=== PATIENT | female | born 1970 | race Caucasian/White ===

== ENCOUNTER 2016-10-22 11:05 | Observation (INO) ==
[2016-10-22 12:02] LABS: Basophils # 0.1 K/mcL (0.0-0.2); Basophils % 0.7 %; Eosinophils # 0.1 K/mcL (0.0-0.6); Eosinophils % 1.1 %; Hematocrit 43.3 % (35.3-44.9); Hemoglobin 14.6 g/dL (11.5-15.4); Immature Granulocytes % 0.6 % (0-4); Lymphocytes # 1.8 K/mcL (0.6-4.6); Mean Corpuscular HGB Conc 33.7 g/dL (31.6-35.5); Mean Corpuscular Hemoglobin 31.7 pg (28.0-33.3); Mean Corpuscular Volume 94.1 fL (83.0-100.0); Mean Platelet Volume 11.1 fL (9.4-12.4); Monocytes # 0.4 K/mcL (0.0-1.3); Monocytes % 5.8 %; Neutrophils # 4.9 K/mcL (1.6-8.9); Platelet Count 221 K/mcL (140-400); Red Cell Distribution Width 12.3 % (11.5-14.5); Segmented Neutrophils % 66.8 %
[2016-10-22 12:12] LABS: BUN/Creatinine Ratio 8 (6-26); Blood Urea Nitrogen 7 mg/dL (7-20); Calcium 9.6 mg/dL (8.6-10.8); Carbon Dioxide 25 mEq/L (19-29); Chloride 100 mEq/L (98-109); Glucose 415 mg/dL (70-99); Osmolality,Calculated 298 (280-300); Potassium 4.1 mEq/L (3.5-4.5); Sodium 136 mEq/L (136-145); eGFR For African Americans > 60 (> 60); eGFR For Non-African Americans > 60 (> 60)
--- NOTE | 2016-10-22 12:25 | Emergency Department Note ---
Disposition Clinical Impression: Syncope Qualifiers: Syncope type: unspecified Qualified Code(s): R55 - Syncope and collapse Chest pain Qualifiers: Chest pain type: unspecified Qualified Code(s): R07.9 - Chest pain, unspecified Disposition: Admitted As Inpatient Condition: Fair Referrals: NONE,PCP [Non-Partnered Physician] - Forms: ED Satisfaction Letter Time of Disposition: 13:29 Syncope HPI - General Chief Complaint: ED Syncope Stated Complaint: Syncopal episode/ Chest pain Time Seen by Provider: 10/22/16 11:24 Source: patient, family Nursing Notes Reviewed: Yes Vital Signs Reviewed: Yes - History of Present Illness HPI Narrative: Patient is a 46-year-old female who presents to [facility] ED with a chief complaint of syncopal episode. Patient states she was sitting outside in her car waiting for her daughter's orthopedic appointment when she all of a sudden started feeling lightheaded, left arm pain and next thing she knew her daughter was waking her up. Patient states that she has had persistent worsening left arm achiness over the last 2 days that seems to start from her left upper chest. Denies any recent injury to the area. She has had 2 prior shoulder replacements and has had some troubles in the past with that left shoulder. However it has not bothered her to this extent. Past medical history significant for coronary artery disease in which catheterization showed 20-30% blockage about a year ago. Denies any shortness of breath, nausea, vomiting, fever or chills. No abdominal pain. No problems with urination or bowel movements. 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 Duration: minutes(s) Prodromal Symptoms: lightheaded, chest pain Witnessed: no Context: at rest Injuries Sustained Associated with Event: none Current Symptoms: chest pain, other (L arm pain) History: none Treatments prior to arrival: none Associated trauma secondary to event: No - Related Data Home Medications Medication Instructions Recorded Confirmed Cholecalciferol (Vitamin D3) 2,000 unit PO DAILY 10/22/16 10/22/16 [Vitamin D] Cyanocobalamin (B-12) [Vitamin B12] 1,000 mcg PO DAILY 10/22/16 10/22/16 Famotidine [Pepcid] 10 mg PO BID 10/22/16 10/22/16 Insulin Glargine,Hum.rec.anlog 33 unit SQ BID 10/22/16 10/22/16 [Basaglar Kwikpen U-100] Insulin LISPRO [Humalog Kwikpen 0 unit SQ TID MDD PER SLIDING SCALE 10/22/16 U-100] Metformin HCl [Glucophage] 1,000 mg PO BID 10/22/16 10/22/16 Metoprolol [Lopressor] 25 mg PO BID 10/22/16 10/22/16 Ranitidine HCl [Zantac] 150 mg PO BID 10/22/16 10/22/16 Rosuvastatin [Crestor] 20 mg PO HS 10/22/16 10/22/16 Sertraline [Zoloft] 50 mg PO DAILY 10/22/16 10/22/16 Trazodone HCl 100 mg PO HS 10/22/16 10/22/16 glipiZIDE [Glipizide] 10 mg PO BID 10/22/16 10/22/16 Allergies Allergy/AdvReac Type Severity Reaction Status Date / Time acetaminophen [From Percocet] AdvReac Itching Verified 07/16/16 10:07 Hydromorphone [From Dilaudid] AdvReac Difficulty Verified 07/16/16 10:07 Breathing Hyoscyamine [From Levbid] AdvReac Itching Verified 07/16/16 10:07 metronidazole [From Flagyl] AdvReac Itching Verified 07/16/16 10:07 Oxycodone [From Percocet] AdvReac Itching Verified 07/16/16 10:07 All systems ED: reviewed and negative except as stated. Past Medical History - Past Medical History Attestation: Yes The following information was validated with the patient. Source: patient Medical history: Reports: asthma, diabetes, hyperlipidemia, renal disease Psychiatric history: Reports: anxiety, depression SHIP PILOT history: Reports: bilateral tubal ligation - Social History Smoking Status: Former smoker Smokeless Tobacco Status: No Alcohol use: Reports: none Drug use: Reports: none Physical Exam - General Limitations: no limitations General appearance: alert, in no apparent distress - Head Head exam: atraumatic, normocephalic, normal inspection - Eye Eye exam: Present: normal appearance, PERRL, EOMI - ENT ENT exam: normal exam, normal oropharynx, mucous membranes moist - Neck Neck exam: Present: normal inspection, full ROM, trachea midline - Chest Chest inspection: Present: normal inspection, symmetric chest wall rise - Respiratory Respiratory exam: Present: normal lung sounds bilaterally - Cardiovascular Cardiovascular exam: Present: normal rhythm, tachycardia, normal heart sounds - Abdominal Exam Abdominal exam: Present: soft, Non-Tender. Absent: tenderness, distention, guarding, rebound, rigidity - Extremities Exam Extremities exam: Present: normal inspection, full ROM. Absent: tenderness, pedal edema - Back Exam Back exam: Present: normal inspection, full ROM. Absent: tenderness - Neurological Exam Neurological exam: Present: alert - Psychiatric Psychiatric exam: Present: normal affect, normal mood - Skin Skin exam: Present: warm, dry, intact, normal color Course Course Narrative: Patient seen and examined. Syncopal episode at rest which occurred along with left arm pain and left-sided chest pain. With her history of CAD, we will go ahead and do cardiac workup. We will also get a d-dimer since she has slightly tachycardic. Plan for admission for syncope and chest pain, rule out ACS. - Reevaluation(s) Reevaluation #1: Lab work shows elevated glucose of 400s. No anion gap. I do not believe this patient is in DKA. Labwork otherwise unremarkable. With patient's left arm and chest pain as well as nonexertional syncope, we will get her admitted for syncope/chest pain rule out ACS workup. I spoke with hospitalist Dr. Jallho who has accepted patient for admission. Time: 13:28 Vital Signs Temperature 98.9 F 10/22/16 11:06 Pulse Rate 102 10/22/16 11:06 Respiratory Rate 16 10/22/16 11:06 Blood Pressure 136/82 10/22/16 11:06 O2 Sat by Pulse Oximetry 97 10/22/16 11:06 Temperature 98.9 F 10/22/16 11:06 Pulse Rate 93 10/22/16 13:23 Respiratory Rate 20 10/22/16 13:23 Blood Pressure 115/74 10/22/16 13:23 O2 Sat by Pulse Oximetry 96 10/22/16 13:23 Oxygen Delivery Oxygen Delivery Room Air Syncope - Medical Records Medical records reviewed: Yes I reviewed the patient's medical records. - Lab Data Lab results reviewed: Yes I reviewed the patient's lab results. Result diagrams: 10/22/16 11:55 10/22/16 11:55 Lab Results 10/22/16 10/22/16 10/22/16 Range/Units 11:07 11:55 11:55 WBC 7.3 (4.3-11.1) K/mcL RBC 4.60 (3.82-4.97) M/mcL Hgb 14.6 (11.5-15.4) g/dL Hct 43.3 (35.3-44.9) % MCV 94.1 (83.0-100.0) fL MCH 31.7 (28.0-33.3) pg MCHC 33.7 (31.6-35.5) g/dL RDW 12.3 (11.5-14.5) % Plt Count 221 (140-400) K/mcL MPV 11.1 (9.4-12.4) fL Immature Gran % 0.6 (0-4) % Seg Neutrophils % 66.8 % Lymphocytes % 25.0 % Monocytes % 5.8 % Eosinophils % 1.1 % Basophils % 0.7 % Neutrophils # 4.9 (1.6-8.9) K/mcL Lymphocytes # 1.8 (0.6-4.6) K/mcL Monocytes # 0.4 (0.0-1.3) K/mcL Eosinophils # 0.1 (0.0-0.6) K/mcL Basophils # 0.1 (0.0-0.2) K/mcL D-Dimer (0-500) ng/mLFEU Sodium 136 (136-145) mEq/L Potassium 4.1 (3.5-4.5) mEq/L Chloride 100 (98-109) mEq/L Carbon Dioxide 25 (19-29) mEq/L BUN 7 (7-20) mg/dL Creatinine 0.83 (0.57-1.11) mg/dL Est GFR ( Amer) > 60 (> 60) Est GFR (Non-Af Amer) > 60 (> 60) BUN/Creatinine Ratio 8 (6-26) Glucose 415 H (70-99) mg/dL POC Glucose 430 H* (58-89) Calculated Osmolality 298 (280-300) Calcium 9.6 (8.6-10.8) mg/dL Troponin I (0-0.03) ng/mL 10/22/16 10/22/16 Range/Units 11:55 12:44 WBC (4.3-11.1) K/mcL RBC (3.82-4.97) M/mcL Hgb (11.5-15.4) g/dL Hct (35.3-44.9) % MCV (83.0-100.0) fL MCH (28.0-33.3) pg MCHC (31.6-35.5) g/dL RDW (11.5-14.5) % Plt Count (140-400) K/mcL MPV (9.4-12.4) fL Immature Gran % (0-4) % Seg Neutrophils % % Lymphocytes % % Monocytes % % Eosinophils % % Basophils % % Neutrophils # (1.6-8.9) K/mcL Lymphocytes # (0.6-4.6) K/mcL Monocytes # (0.0-1.3) K/mcL Eosinophils # (0.0-0.6) K/mcL Basophils # (0.0-0.2) K/mcL D-Dimer 297 (0-500) ng/mLFEU Sodium (136-145) mEq/L Potassium (3.5-4.5) mEq/L Chloride (98-109) mEq/L Carbon Dioxide (19-29) mEq/L BUN (7-20) mg/dL Creatinine (0.57-1.11) mg/dL Est GFR ( Amer) (> 60) Est GFR (Non-Af Amer) (> 60) BUN/Creatinine Ratio (6-26) Glucose (70-99) mg/dL POC Glucose (58-89) Calculated Osmolality (280-300) Calcium (8.6-10.8) mg/dL Troponin I 0.00 (0-0.03) ng/mL - Radiology Data Radiology results reviewed: Yes I reviewed the patient's radiology results. Chest X-Ray 10/22/16 11:45 IMPRESSION: No acute cardiopulmonary process. D/ / 10/22/2016 12:26:15 Rajesh Rader MD / [facility] Interpreting Provider: Rajesh Rader MD - EKG Data EKG attestation: Yes I reviewed and interpreted this EKG. EKG results narrative: EKG done at 1116 shows normal sinus rhythm with a rate of 96 bpm. Normal axis. Q wave present in lead 3 along with inverted T wave. No acute ST elevation. Mild ST depression in V5 and V6.
--- NOTE | 2016-10-22 12:28 | Emergency Department Note ---
START Narrative - START START: I examined this patient and my medical decision-making was reviewed with the STRUCTURAL WORKER/PA/Advanced Practice Nurse/Resident Physician. I agree with the documented findings, disposition and treatment plan as described except to the extent set forth below. ED attending note: Patient seen with emergency medicine resident Dr ACEVEDO. We independently evaluated the patient. We independently had [id number] contact with the patient. Please see a copy of his note for details of the history and physical, evaluation, management and disposition of this emergency Department patient. Briefly: 46-year-old female syncopal episode while sitting in car with a cool breeze patient felt a little nauseated and lightheaded and woke up with family member present. This happened once before last summer when she was out gardening in the hot sun. Patient also has a history of CAD verified by a recent cardiac catheter within about a year or so showing 20-30% blockage of the LAD. Patient's initial troponin was negative. EKG showed no acute ischemic changes. Patient will be admitted for syncope and chest pain ACS. We provided 35 minutes of critical care service for this patient. Pt is symptom- free at this time.
[2016-10-22] MEDS ORDERED: Naloxone 0.4 MG/ML INJ IVP PRN (15:07)
[2016-10-22] MEDS ORDERED: Ondansetron 4 MG/2 ML VIAL IVP PRN (15:07)
[2016-10-22] MEDS ORDERED: *HR* Dextrose 50 % in Water (Syg) 50 ML SYRINGE IVP PRN (15:20)
[2016-10-22] MEDS ORDERED: D5% in Water 1,000 ML IVC PRN ×2 (15:20→15:24)
[2016-10-22] MEDS ORDERED: Dextrose Gel 15 GM PO PRN ×2 (15:20)
--- NOTE | 2016-10-22 15:40 | Internal Med History&Physical ---
<Nay Chopra - Last Filed: 10/22/16 15:53> Date of Encounter: 10/22/16 Time of Encounter: 15:00 Assessment and Plan (1) Chest pain Current visit: Yes Status: Acute 1 patient had a syncopal episode she experienced left-sided chest pain as well as left arm tingling. She does have a history of coronary artery disease in 2030% progress to LAD. We will continue to trend troponins 2 cardiac echo 3. Nothing by mouth after midnight-cardiac stress in a.m. 4 we will continue with statin we will check lipid profile continue beta be LAD aspirin 5 consult cardiology as needed Qualifiers: Chest pain type: unspecified Qualified Code(s): R07.9 - Chest pain, unspecified (2) Syncope Current visit: Yes Status: Acute 1 patient did have an episode of syncope. We will continue to trend her troponin 2 obtain cardiac echo 3 continuous cardiac monitoring 4 carotid Dopplers 5 orthostatic vital signs 6. Fall Precautions Qualifiers: Syncope type: unspecified Qualified Code(s): R55 - Syncope and collapse (3) Diabetes Current visit: No Status: Chronic 1 patient's blood glucose was 415-anion gap 11-ramos that she has not been taking her insulin states she is to take it anymore. We will check blood sugars before meals at bedtime sliding scale insulin will add basal insulin. We will check A1c 2 diabetic diet Qualifiers: Diabetes mellitus type: type 2 Diabetes mellitus complication status: without complication Diabetes mellitus terminal carman insulin use: with terminal carman use Qualified Code(s): E11.9 - Type 2 diabetes mellitus without complications ; Z79.4 - terminal carman (current) use of insulin (4) DVT prophylaxis Current visit: Yes Status: Acute 1 [facility] Internal Medicine - H&P: HPI Chief complaint: syncope,cp Admitted From: Emergency Dept Plans for Post Hospital Care: Home History of present illness: Ms. See is a 46 year old female past medical history of heart disease asthma diabetes hyperlipidemia hypertension renal disease. Patient was sitting in her car today in the hospital parking lot waiting for her daughter, it was warm however she had window rolled down and was experiencing a cold breeze. Patient felt a little nauseated and lightheaded also chest pressure and left-sided chest and left arm numbness tingling. She did pass out for unknown amount time and was found by her daughter. Prior to this episode she was in normal state of health. She does have a history of CAD she had a cardiac catheterization proxy 1 year ago in [place] which did reveal 2030% blockage of the LAD. She does admit to a previous episode last summer when she was out gardening in the hot sun and experienced a syncopal episode. She was brought to the ER for evaluation. Lab work completed in the ER was unremarkable except for she did have elevated glucose at 415, tearful she has a DKA and Anion gap is 11. Troponin is 0. Vital signs were stable . EKG normal sinus with no acute ST elevation some mild ST depression. She has been admitted for further workup evaluation. Presently patient is not in pain respiratory distress she complains of some tingling in her left arm. Lung sounds are clear heart sounds are regular S1-S2 no rubs clicks, murmurs. Abdomen soft nontender. She is sinus rhythm on monitor. She has hemolytic stable at this time. I reviewed this case with Dr. Jalloh who agrees with plan. r Past Med Surg Social Fam HX - Past Medical History Medical history: asthma, diabetes, hyperlipidemia, renal disease Psychiatric history: anxiety, depression - Social History Smoking Status: Former smoker Smokeless Tobacco Status: No Alcohol use: none Drug use: none - Additional Family History Additional family history: Reviewed noncontributory Internal Medicine - H&P: Meds Cholecalciferol (Vitamin D3) [Vitamin D] 2,000 unit PO DAILY 10/22/16 [History] Cyanocobalamin (B-12) [Vitamin B12] 1,000 mcg PO DAILY 10/22/16 [History] Famotidine [Pepcid] 10 mg PO BID 10/22/16 [History] Insulin Glargine,Hum.rec.anlog [Basaglar Kwikpen U-100] 33 unit SQ BID 10/22/16 [History] Insulin LISPRO [Humalog Kwikpen U-100] 0 unit SQ TID MDD PER SLIDING SCALE 10/22 [History] Metformin HCl [Glucophage] 1,000 mg PO BID 10/22/16 [History] Metoprolol [Lopressor] 25 mg PO BID 10/22/16 [History] Ranitidine HCl [Zantac] 150 mg PO BID 10/22/16 [History] Rosuvastatin [Crestor] 20 mg PO HS 10/22/16 [History] Sertraline [Zoloft] 50 mg PO DAILY 10/22/16 [History] Trazodone HCl 100 mg PO HS 10/22/16 [History] glipiZIDE [Glipizide] 10 mg PO BID 10/22/16 [History] Allergies acetaminophen [From Percocet] Adverse Reaction (Verified 07/16/16 10:07) Itching Hydromorphone [From Dilaudid] Adverse Reaction (Verified 07/16/16 10:07) Difficulty Breathing Hyoscyamine [From Levbid] Adverse Reaction (Verified 07/16/16 10:07) Itching metronidazole [From Flagyl] Adverse Reaction (Verified 07/16/16 10:07) Itching Oxycodone [From Percocet] Adverse Reaction (Verified 07/16/16 10:07) Itching All Systems PM: A 10-system review of systems was performed and is negative for pertinent findings except as documented above in the HPI. - Constitutional Constitutional: no chills, no fever(s), no night sweats - EENT Eyes: no change in vision, no discharge, no pain, no photophobia Nose, mouth and throat: no dysphagia, no nasal discharge, no neck pain, no sore throat - Cardiovascular Cardiovascular ROS IM: chest pain, no diaphoresis, no dyspnea, no lightheadedness, no palpitations, no syncope - Respiratory Respiratory: no cough, no dyspnea, no wheezing, no excessive phlegm production - Gastrointestinal Gastrointestinal: no abdominal pain, no diarrhea, no hematemesis, no hematochezia, no melena, no nausea, no vomiting - Genitourinary Genitourinary: no change in urinary stream, no dysuria, no flank pain, no hematuria - Musculoskeletal Musculoskeletal ROS IM: no numbness, no tingling - Integumentary Integumentary IM: no rash, no unusual bruising - Neurological Neurological ROS: tingling, no confusion, no convulsions, no focal weakness, no numbness, no tremor(s) - Hematologic/Lymphatic Hematologic/Lymphatic: no easy bruising - Constitutional Vitals: Temp Pulse Resp BP Pulse Ox 98.9 F 84 20 107/66 93 10/22/16 11:06 10/22/16 14:00 10/22/16 14:56 10/22/16 14:56 10/22/16 14:00 General appearance: Present: A&O X 3, morbidly obese - Head Head exam: Present: atraumatic, normocephalic - Eye Eye exam: Present: PERRL, conjuntiva pink, sclera anicteric Pupils: Present: PERRL - Neck Neck exam general surgery: Present: supple, trachea midline. Absent: lymphadenopathy - Respiratory Respiratory exam: Present: CTAB. Absent: accessory muscle use, rales, rhonchi, wheezes - Cardiovascular Cardiovascular exam: Present: RRR, +S1, +S2. Absent: diastolic murmur, gallop, rubs, systolic murmur - GI/Abdominal GI/Abdominal exam: Present: normal bowel sounds, soft, no peritoneal signs. Absent: distended, tenderness - Extremities Exam Extremities exam: Present: warm, radial pulses palpable and symetrical. Absent : calf tenderness, cyanotic, pedal edema - Neurological Exam Neurological exam: Present: CN II-XII intact, oriented X3, no focal deficits. Absent: pronater drift, facial droop, speech deficit - Skin Skin exam: Present: dry, intact Internal Med - H&P Results - Labs CBC & Chem 7: 10/22/16 11:55 10/22/16 11:55 - EKG Data EKG shows normal: sinus rhythm - EKG Data Prior EKG available for review: no - Diagnostic Studies Other Images Additional comments: Chest X-Ray 10/22/16 11:45 IMPRESSION: No acute cardiopulmonary process. D/ / 10/22/2016 12:26:15 Rajesh Rader MD / [facility] Interpreting Provider: Rajesh Rader MD <David Jalloh - Last Filed: 10/22/16 19:00> Date of Encounter: 10/22/16 Internal Medicine - H&P: HPI History of present illness: Ms. See is a 46 year old female Past Med Surg Social Fam HX - Family History Mother Living Status: Age at : 66 Cause of : lung cancer with mets. All Systems PM: A 10-system review of systems was performed and is negative for pertinent findings except as documented above in the HPI. - Constitutional Vitals: Temp Pulse Resp BP Pulse Ox 98.0 F 88 18 112/68 94 10/22/16 16:05 10/22/16 16:05 10/22/16 16:05 10/22/16 16:05 10/22/16 16:05 Internal Med - H&P Results - Labs CBC & Chem 7: 10/22/16 11:55 10/22/16 11:55 Labs: Cardiac Enzymes 10/22/16 Range/Units 17:54 Troponin I 0.00 (0-0.03) ng/mL - Attending Attestation I have personally performed a face to face evaluation on this patient and I discussed the assessment and plan with the nurse practitioner. I have reviewed and agree with the documented care plan. History and Exam by me shows: Ms. See is a 46 year old female past medical history of heart disease asthma diabetes hyperlipidemia hypertension renal disease. Patient was sitting in her car today in the hospital parking lot waiting for her daughter, it was warm however she had window rolled down and was experiencing a cold breeze. Patient felt a little nauseated and lightheaded also chest pressure and left-sided chest and left arm numbness tingling. She did pass out for unknown amount time and was found by her daughter. Prior to this episode she was in normal state of health. She does have a history of CAD she had a cardiac catheterization proxy 1 year ago in [place] which did reveal 20-30% blockage of the LAD. Gen: A, A, O x3 Chest : diminished BS b/l basal regions, No crackles / rales Heart : S1 S2 +, RRR, No murmurs a/p 1. Acute syncope 2. Acute chest pain Check serial troponin since pt is high risk for ACS.. will order Jemima Scan stress test in AM 3. Hyperglycemia / uncontrolled DM2 Counseled the importance of compliance with her insulin resumed her home meds and placed her on ISS + Levemir
[2016-10-22] MEDS: Insulin LISPRO 300 UNITS/3 ML VIAL SQ SCH (16:39)
--- NOTE | 2016-10-22 18:29 | Electrocardiograph Report ---
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
[2016-10-22 19:14] LABS: Bilirubin,Urine Negative (Negative); Blood,Urine Negative (Negative); Clarity,Urine Clear (Clear); Color,Urine Yellow (Yellow); Glucose,Urine (UA) >=1000 mg/dL (Normal); Ketones,Urine Negative (Negative); Leukocyte Esterase,Urine Trace (Negative); Nitrite,Urine Negative (Negative); Protein,Urine Negative (Neg-Trace); Specific Gravity,Urine > 1.030 (1.010-1.025); Urobilinogen,Urine Normal (Normal)
[2016-10-22 19:21] LABS: Bacteria,Urine Few per hpf (None-Few); Hyaline Casts,Urine None Seen per lpf (None-Few); Squamous Epithelial Cell,Urine Many per lpf (None-Few); WBC,Urine 15-30 per hpf (0-3)
[2016-10-22] MEDS ORDERED: Insulin DETEMIR 100 UNIT/ML X5UNITS SQ SCH (21:00)
[2016-10-22] MEDS ORDERED: Insulin LISPRO 300 UNITS/3 ML VIAL SQ SCH (21:00)
[2016-10-22] MEDS ORDERED: traZODone 50 MG TABLET PO SCH (21:00)
[2016-10-22] MEDS ORDERED: NON-FORMULARY MEDICATION 1 EACH EACH (Ranitidine Hcl [Zantac] 150 MG) PO SCH (21:00)
[2016-10-22] MEDS: Famotidine 20 MG TABLET PO SCH (21:37)
[2016-10-23 00:42] LABS: Basophils % 0.5 %; Eosinophils # 0.1 K/mcL (0.0-0.6); Eosinophils % 1.6 %; Hematocrit 41.1 % (35.3-44.9); Hemoglobin 13.6 g/dL (11.5-15.4); Immature Granulocytes % 0.7 % (0-4); Lymphocytes # 3.8 K/mcL (0.6-4.6); Lymphocytes % 49.7 %; Mean Corpuscular HGB Conc 33.1 g/dL (31.6-35.5); Mean Corpuscular Hemoglobin 31.8 pg (28.0-33.3); Mean Platelet Volume 11.3 fL (9.4-12.4); Monocytes # 0.6 K/mcL (0.0-1.3); Monocytes % 7.3 %; Neutrophils # 3.1 K/mcL (1.6-8.9); Platelet Count 205 K/mcL (140-400); Red Blood Count 4.28 M/mcL (3.82-4.97); Red Cell Distribution Width 12.5 % (11.5-14.5); Segmented Neutrophils % 40.2 %
[2016-10-23 00:57] LABS: BUN/Creatinine Ratio 16 (6-26); Blood Urea Nitrogen 12 mg/dL (7-20); Calcium 9.1 mg/dL (8.6-10.8); Carbon Dioxide 30 mEq/L (19-29); Chloride 99 mEq/L (98-109); Chol/HDL Ratio 5.3 (0-4.9); Cholesterol 186 mg/dL (< 200); Glucose 230 mg/dL (70-99); HDL Cholesterol 35 mg/dL (40-59); LDL Cholesterol,Calculated 91 mg/dL (0-99); Magnesium 1.7 mg/dL (1.6-2.6); Osmolality,Calculated 287 (280-300); Potassium 3.6 mEq/L (3.5-4.5); Sodium 135 mEq/L (136-145); Triglycerides 298 mg/dL (< 150); eGFR For African Americans > 60 (> 60); eGFR For Non-African Americans > 60 (> 60)
[2016-10-23] MEDS ORDERED: Regadenoson 0.4 MG/5 ML SYRINGE IVP ONE ×3 (05:35→08:15)
[2016-10-23] MEDS ORDERED: *HR* Enoxaparin 40 MG/0.4 ML SYRINGE SQ SCH (07:00)
[2016-10-23] MEDS ORDERED: Cholecalciferol (D-3) 1,000 UNIT TABLET PO SCH (09:00)
[2016-10-23] MEDS ORDERED: Aspirin 81 MG TAB.CHEW PO SCH (09:00)
[2016-10-23] MEDS ORDERED: Cyanocobalamin (B-12) 1,000 MCG TABLET PO SCH (09:00)
[2016-10-23] MEDS: Insulin LISPRO 300 UNITS/3 ML VIAL SQ SCH ×3 (09:25→16:30)
[2016-10-23] MEDS: Famotidine 20 MG TABLET PO SCH (09:27)
[2016-10-23 14:53] VITALS: BP 96/63
--- NOTE | 2016-10-23 17:12 | Discharge Summary ---
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 Qualified Code(s): E11.9 - Type 2 diabetes mellitus without complications ; Z79.4 - penitentiary (current) use of insulin (4) Hyperlipidemia Priority: Secondary Status: Chronic Qualifiers: Hyperlipidemia type: unspecified Qualified Code(s): E78.5 - Hyperlipidemia , unspecified (5) Essential hypertension Priority: Secondary Status: Chronic - Discharge Medications Prescriptions: Aspirin 81 mg PO DAILY #30 Rosuvastatin [Crestor] 20 mg PO HS #30 Home Medications: Cholecalciferol (Vitamin D3) [Vitamin D3] 2,000 unit PO DAILY 10/22/16 [History] Cyanocobalamin (B-12) [Vitamin B12] 1,000 mcg PO DAILY 10/22/16 [History] Famotidine [Pepcid] 10 mg PO BID 10/22/16 [History] Insulin Glargine,Hum.rec.anlog [Basaglar Kwikpen U-100] 33 unit SQ BID 10/22/16 [History] Insulin LISPRO [Humalog Kwikpen U-100] 0 unit SQ TID MDD PER SLIDING SCALE 10/22 [History] Metformin HCl [Glucophage] 1,000 mg PO BID 10/22/16 [History] Metoprolol [Lopressor] 25 mg PO BID 10/22/16 [History] Ranitidine HCl [Zantac] 150 mg PO BID 10/22/16 [History] Sertraline [Zoloft] 50 mg PO DAILY 10/22/16 [History] Trazodone HCl 100 mg PO HS 10/22/16 [History] glipiZIDE [Glipizide] 10 mg PO BID 10/22/16 [History] Aspirin 81 mg PO DAILY #30 10/23/16 [Rx] Rosuvastatin [Crestor] 20 mg PO HS #30 08/01/17 [Rx] Allergies/Adverse Reactions: Allergies acetaminophen [From Percocet] Adverse Reaction (Verified 07/16/16 10:07) Itching Hydromorphone [From Dilaudid] Adverse Reaction (Verified 07/16/16 10:07) Difficulty Breathing Hyoscyamine [From Levbid] Adverse Reaction (Verified 07/16/16 10:07) Itching metronidazole [From Flagyl] Adverse Reaction (Verified 07/16/16 10:07) Itching Oxycodone [From Percocet] Adverse Reaction (Verified 07/16/16 10:07) Itching Procedures/tests Complete & Pending: Procedures Performed prior 72 hours Category Date Time Status NM shilpa perf SPECT multi [NM] Routine Exams 10/22/16 15:13 Taken EV carotid duplex imaging BI Stat Y 10/23/16 15:16 Completed EV echocardiogram Stat Y 10/23/16 15:11 Completed SP pharm nuclear stress Stat Y 10/23/16 07:15 Completed Date of admission: 10/22/16 14:16 Primary care physician: Corrine Stein Anticipated date of discharge: 10/23/16 - Patient Status Disposition: Home, Self-Care Condition: Good - Discharge Instructions Follow Up With: Corrine Stein, PhD [Primary Care Provider] - - Diet and Activity Activity: increase activity as tolerated Diet: low fat, low cholesterol Hospital course: Ms. See is a 46 year old female with past medical history of diabetes, hypertension and hyperlipidemia. She presents to the ED with complaints of syncope and chest pain. Patient was apparently sitting in her car when she felt a little bruits which made her nauseated and lightheaded. She also developed left-sided chest pain and left arm numbness. Patient was passed out for a unknown duration and was found to daughter. Patient did have a cardiac catheterization approximately one year ago which revealed mild coronary artery disease. She is also had a syncopal episode in the past about one year ago. Initial workup is negative. Troponin is negative 4. EKG does not show any acute ST-T changes. Echocardiogram shows LVEF 60-65% with normal LV size and thickness and function and normal RV structure and function. No abnormal wall motion. Patient underwent stress test as well and report is pending. Patient is currently asymptomatic. She states that she wants to go home now. Patient states she will follow up with probably a physician. She was explained about her condition and bladder care. She understood and agreed. Patient states she feels better and wants to go home. Patient did not have any other acute events or competition during her stay in the hospital. Being discharged in a stable condition. - Time Spent with Patient Total time spent providing and/or coordinating discharge services: Less than 30 minutes - Constitutional Vitals: Temp Pulse Resp BP Pulse Ox 98.3 F 81 16 96/63 98 10/23/16 14:52 10/23/16 14:52 10/23/16 14:52 10/23/16 14:52 10/23/16 14:52 General appearance: Present: A&O X 3, morbidly obese, pleasant, no acute distress, answers questions appropriately - Head Head exam: Present: atraumatic - Eye Eye exam: Present: EOMI - Neck Neck exam general surgery: Present: supple - Respiratory Respiratory exam: Present: CTAB. Absent: rales, rhonchi, stridor, wheezes, tachypnea - Cardiovascular Cardiovascular exam: Present: RRR, +S1, +S2. Absent: systolic murmur - GI/Abdominal GI/Abdominal exam: Present: soft, no peritoneal signs. Absent: distended, firm , guarding, rigid, tenderness - Extremities Exam Extremities exam: Present: pedal edema (Mild bilateral), radial pulses palpable and symetrical. Absent: cyanotic, tenderness - Neurological Exam Neurological exam: Present: alert, oriented X3, no focal deficits. Absent: facial droop, speech deficit
--- NOTE | 2016-10-23 21:51 | Carotid Imaging Report ---
Carotid Duplex Patient Name:Patricia See Order Number:[id number] Procedure Date:10/23/2016 Date:1970Age:46 yrs Gender:Female Lt BP:98 / 62 mmHg Rt.BP:94 / 62 mmHgHeart Rate: Location:[facility] Room #: 3A36 Licensed Real Estate Broker:Cathy Snider, RDCS, RVT Referring MD:Nay Chopra BULK CLERK sterile processing technologist:Corrine Stein DO Reading MD:Noel Harrington MD , FACS Primary Indications:Syncope Risk Factors Yes/No Hypertension Yes Diabetes Yes Hypercholesterolemia Yes Smoker Previous Yes Hx of TIA No Hx of CVA No Impressions: Findings: Bilateral carotid systems are essentially normal. Recommendations: After imaging the patient returned to their room. Test completed on 10/23/2016 at 8:35:23 am. Findings Carotid Duplex: Cruz scale imaging combined with Doppler flow analysis suggests normal findings bilaterally. Right: The right proximal common carotid artery has a PSV of 117 cm/s and a EDV of 17 cm/s. The right mid common carotid artery has a PSV of 112 cm/s and a EDV of 24 cm/s. The right distal common carotid artery has a PSV of 93 cm/s and a EDV of 18 cm/s. The right bifurcation has a PSV of 73 cm/s and a EDV of 18 cm/s. The right proximal internal carotid artery has a PSV of 67 cm/s and a EDV of 22 cm/s. The right mid internal carotid artery has a PSV of 105 cm/s and a EDV of 29 cm/s. The right distal internal carotid artery has a PSV of 62 cm/s and a EDV of 25 cm/s. The right eca has a PSV of 115 cm/s and a EDV of 16 cm/s. The right vertebral artery has a PSV of 53 cm/s and a EDV of 17 cm/s. There is antegrade spectral Doppler flow patterns. Left: The left proximal common carotid artery has a PSV of 123 cm/s and a EDV of 26 cm/s. The left mid common carotid artery has a PSV of 101 cm/s and a EDV of 23 cm/s. The left distal common carotid artery has a PSV of 107 cm/s and a EDV of 25 cm/s. The left bifurcation has a PSV of 76 cm/s and a EDV of 22 cm/s. The left proximal internal carotid artery has a PSV of 56 cm/s and a EDV of 20 cm/s. The left mid internal carotid artery has a PSV of 48 cm/s and a EDV of 18 cm/s. The left distal internal carotid artery has a PSV of 72 cm/s and a EDV of 28 cm/s. The left eca has a PSV of 130 cm/s and a EDV of 13 cm/s. The left vertebral artery has a PSV of 52 cm/s and a EDV of 16 cm/s. There is antegrade spectral Doppler flow patterns. Prior Study: No prior study available for comparison. Carotid Results Right PSV EDV Assessment Proximal CCA 117 17 Normal Mid CCA 112 24 Normal Distal CCA 93 18 Normal Bifurcation 73 18 Normal Proximal ICA 67 22 Normal Mid ICA 105 29 Normal Distal ICA 62 25 Normal ECA 115 16 Normal Vertebral Artery 53 17 Antegrade Flow Left PSV EDV Assessment Proximal CCA 123 26 Normal Mid CCA 101 23 Normal Distal CCA 107 25 Normal Bifurcation 76 22 Normal Proximal ICA 56 20 Normal Mid ICA 48 18 Normal Distal ICA 72 28 Normal ECA 130 13 Normal Vertebral Artery 52 16 Antegrade Flow Ratio's Right ICA/CCA Ratio: 0.94 ICA/CCA Values: 105/112 Left ICA/CCA Ratio: 0.71 ICA/CCA Values: 72/101 Updated by Noel Harrington MD, FACS on 10/23/2016 9:45:57 PM Noel Harrington MD electronically signed on 10/23/2016 9:46:33 PM with status of Final
--- NOTE | 2016-10-24 15:12 | Nuclear Medicine Stress Report ---
Regadenoson Nuclear 2 day Name: Patricia See Date of Study: 10/23/2016 Date: 1970 Ht: 65.0 in Medical Record#: [id number] Age: 46 Wt: 295.0 lb Gender: Female Order #: [id number] Location: [facility] Room: [facility] Supervising Provider: Erin Nagy CNP Reading Physician: Deja Calero DO Ordering Physician: Yamileth Rader MD Primary Care Physician: Corrine Stein DO Stress Technologist: Bonilla Torre CRT Measurement Supervisor: Javed Edwards Indications: Chest Pain Impression: Technically challenging 2-day study. No identifiable ischemia or infarct on this study. Pharmacologic ECG was negative for ischemia at the level of heart rate achieved. Gated EF = >70%. History: Diabetes Hypercholesteremia Stress Test Summary: Stress Test Type: Pharmacologic Baseline Information: Initial Heart Rate: 77 Blood Pressure: 110/80 Stress Information: Test Terminated Due to (primary): As per protocol Maximum Blood Pressure: 118/78 Maximum Heart Rate: 100 Percent Maximum Heart Rate Achieved: 57 Double Product: [id number] METS Reached: 1 Symptoms: No chest symptoms Nuclear Summary: SPECT myocardial perfusion imaging using [id number] Sestamibi given intravenously was performed at rest and following cardiac stress testing. The resting images were obtained following initial dose of 33 mCi. Following stress an additional dose of 32.9 mCi was given at peak exercise or 30 seconds post regadenoson infusion. Medication Given: Time Medication Dose Units Route Findings: Stress Note * Resting ECG demonstrated normal sinus rhythm. * Pharmacologic stress ECG is negative for ischemia at level of heart rate achieved. * No arrhythmias were noted during stress. * Patient had no chest pain during stress. Hemodynamic responses * Normal hemodynamic responses to pharmacologic stress. Study Quality * Technically difficult/limited study. Gated EF > 70% * Gated EF > 70%. Left Ventricle * The left ventricle is not dilated. TID * No evidence of transient ischemic dilatation. Lung Uptake * There is no evidence of increase lung uptake. NORMALS * Normal wall motion. PERFUSION * There is decreased perfusion of mild intensity involving the basal to mid inferior wall on rest and stress images. Wall motion is normal. These findings represent artifact. * Increased perfusion uptake in the lateral wall on rest and stress images suggest breast attenuation. * Other areas demonstrate normal rest and stress perfusion. Updated by Deja Calero on 10/24/2016 3:04:49 PM electronically signed on 10/24/2016 3:07:02 PM with status of Final
== END 2016-10-23 17:40 | disposition home or self-care (01) ==
LOC: 3ANU 11:05 → EMEROO 11:05 → 3ANU 15:35
PROVIDERS: ADMIT Internal Medicine; ATTEND Internal Medicine

== ENCOUNTER 2021-12-09 06:53 | Inpatient (IN) ==
[2021-12-09] MEDS ORDERED: 0.9 % Sodium Chloride 1,000 ML ONE (08:07)
[2021-12-09] MEDS ORDERED: 0.9 % Sodium Chloride 1,000 ML IV ONE ×3 (08:09→12:52)
[2021-12-09] MEDS ORDERED: Ondansetron 4 MG/2 ML VIAL IVP ONE (08:47)
[2021-12-09 09:02] LABS: Basophils # 0.1 K/mcL (0.0-0.2); Basophils % 0.8 %; Eosinophils % 0.4 %; Hematocrit 45.7 % (35.3-44.9); Hemoglobin 15.7 g/dL (11.5-15.4); Immature Granulocytes % 0.8 % (0-4); Lymphocytes # 2.2 K/mcL (0.6-4.6); Lymphocytes % 20.8 %; Mean Corpuscular HGB Conc 34.4 g/dL (31.6-35.5); Mean Corpuscular Volume 93.1 fL (83.0-100.0); Mean Platelet Volume 11.5 fL (9.4-12.4); Monocytes # 0.7 K/mcL (0.0-1.3); Monocytes % 6.5 %; Neutrophils # 7.5 K/mcL (1.6-8.9); Platelet Count 278 K/mcL (140-400); Red Blood Count 4.91 M/mcL (3.82-4.97); Red Cell Distribution Width 11.9 % (11.5-14.5); Segmented Neutrophils % 70.7 %; White Blood Count 10.6 K/mcL (4.3-11.1)
[2021-12-09 09:08] LABS: VBG HCO3 24 mEq/L (21-27); VBG PCO2 42 mmHg (41-51); VBG PH 7.38 pH Units (7.32-7.42); VBG PO2 123 mmHg (25-50)
[2021-12-09 09:40] LABS: Influenza A PCR Negative (Negative); Influenza B PCR Negative (Negative); Resp. Syncytial Virus PCR Negative (Negative); SARS-CoV-2 by PCR (In House) Negative (Negative)
[2021-12-09 11:07] LABS: Calcium 8.8 mg/dL (8.6-10.3); Potassium 4.4 mEq/L (3.5-5.1)
[2021-12-09] MEDS ORDERED: Insulin Human Regular 10 UNIT in 0.9 % Sodium Chloride 10 ML IV ONE (11:19)
[2021-12-09 13:59] LABS: Bacteria,Urine Few per hpf (None-Few); Bilirubin,Urine Negative (Negative); Blood,Urine Negative (Negative); Clarity,Urine Clear (Clear); Color,Urine Light-Yellow (Yellow); Glucose,Urine (UA) >=1000 mg/dL (Normal); Hyaline Casts,Urine Few per lpf (None Seen); Ketones,Urine Negative (Negative); Leukocyte Esterase,Urine Small (Negative); Mucus,Urine Few per lpf (None-Few); Nitrite,Urine Negative (Negative); Protein,Urine 70 mg/dL (Neg-Trace); Squamous Epithelial Cell,Urine Few per hpf (None-Few); Urobilinogen,Urine Normal (Normal)
[2021-12-09] MEDS ORDERED: D5% in Water 1,000 ML IVC PRN (14:39)
[2021-12-09] MEDS ORDERED: *HR* Dextrose 50 % in Water (Syg) 50 ML SYRINGE IVP PRN (14:39)
[2021-12-09] MEDS ORDERED: Dextrose Gel 15 GM/37.5 ML TUBE PO PRN ×2 (14:39)
[2021-12-09] MEDS ORDERED: Insulin DETEMIR 100 UNIT/ML X5UNITS SUBQ SCH (14:45)
[2021-12-09] MEDS: *HR* Heparin 5,000 UNIT/ML VIAL SQ SCH ×2 (18:37→19:59)
[2021-12-09 18:42] LABS: INR 1.1; Prothrombin Time 12.1 Seconds (9.4-12.1)
[2021-12-09 18:45] LABS: Activated Partial Thrombo Time 30.5 Seconds (26.0-36.0)
[2021-12-09] MEDS: Insulin LISPRO 300 UNITS/3 ML VIAL SUBQ SCH (18:50)
[2021-12-09] MEDS: 0.9 % Sodium Chloride 1,000 ML IVC SCH (18:50)
[2021-12-09] MEDS: cefTRIAXone 2,000 MG in 0.9 % Sodium Chloride 20 ML IVP SCH (18:50)
[2021-12-09] MEDS: Insulin DETEMIR 100 UNIT/ML X5UNITS SUBQ SCH (18:51)
[2021-12-09 19:23] VITALS: TEMP 98.3
[2021-12-09] MEDS ORDERED: Insulin LISPRO 300 UNITS/3 ML VIAL SUBQ SCH (21:00)
[2021-12-10] MEDS: 0.9 % Sodium Chloride 1,000 ML IVC SCH (01:56)
[2021-12-10] MEDS ORDERED: Magnesium Sulfate 1 GM/102 ML PIGGYBACK IVPB ONE (02:26)
[2021-12-10] MEDS ORDERED: Prochlorperazine 10 MG/2 ML VIAL IVP ONE (02:26)
[2021-12-10 02:47] LABS: Basophils % 0.6 %; Eosinophils # 0.1 K/mcL (0.0-0.6); Eosinophils % 1.9 %; Hematocrit 38.8 % (35.3-44.9); Immature Granulocytes % 0.6 % (0-4); Lymphocytes # 2.9 K/mcL (0.6-4.6); Lymphocytes % 41.9 %; Mean Corpuscular Hemoglobin 32.4 pg (28.0-33.3); Mean Corpuscular Volume 95.1 fL (83.0-100.0); Mean Platelet Volume 11.4 fL (9.4-12.4); Monocytes # 0.6 K/mcL (0.0-1.3); Monocytes % 8.8 %; Neutrophils # 3.2 K/mcL (1.6-8.9); Platelet Count 205 K/mcL (140-400); Red Blood Count 4.08 M/mcL (3.82-4.97); Red Cell Distribution Width 12.1 % (11.5-14.5); Segmented Neutrophils % 46.2 %; White Blood Count 6.9 K/mcL (4.3-11.1)
[2021-12-10 02:51] LABS: Hemoglobin 13.2 g/dL (11.5-15.4)
[2021-12-10 03:12] LABS: Alanine Aminotransferase 6 Units/L (7-52); Albumin 3.3 g/dL (3.5-5.7); Albumin/Globulin Ratio 1.3 (1.1-2.2); Alkaline Phosphatase 53 Units/L (34-104); Aspartate Amino Transferase 9 Units/L (13-39); BUN/Creatinine Ratio 26 (6-26); Bilirubin,Direct 0.1 mg/dL (0.0-0.2); Bilirubin,Indirect 0.3 mg/dL (0.0-1.0); Bilirubin,Total 0.4 mg/dL (0.3-1.0); Blood Urea Nitrogen 19 mg/dL (6-20); Calcium 8.1 mg/dL (8.6-10.3); Carbon Dioxide 24 mEq/L (23-29); Chloride 105 mEq/L (98-107); Globulin 2.6 g/dL (2.4-3.5); Glucose 141 mg/dL (70-105); Osmolality,Calculated 289 (280-300); Potassium 3.4 mEq/L (3.5-5.1); Sodium 137 mEq/L (136-145); Total Protein 5.9 g/dL (6.4-8.9)
[2021-12-10] MEDS: *HR* Heparin 5,000 UNIT/ML VIAL SQ SCH (04:38)
[2021-12-10 05:11] LABS: Estimated Average Glucose 258 mg/dl; Hemoglobin A1C 10.6 %
[2021-12-10] MEDS ORDERED: Potassium Effervescent 25 MEQ TABLET.EFF PO ONE (08:03)
[2021-12-10] MEDS: cefTRIAXone 2,000 MG in 0.9 % Sodium Chloride 20 ML IVP SCH (08:30)
[2021-12-10] MEDS: Insulin LISPRO 300 UNITS/3 ML VIAL SUBQ SCH ×2 (08:31→12:11)
[2021-12-10] MEDS: Insulin DETEMIR 100 UNIT/ML X5UNITS SUBQ SCH (08:35)
[2021-12-10 11:01] VITALS: BP 130/65; PULSE 85; O2SAT 94
== END 2021-12-10 12:48 | disposition home or self-care (01) | DRG 469 ==
LOC: EMEROOARM 06:53 → 2NNU 17:09
PROVIDERS: ADMIT Internal Medicine; ATTEND Internal Medicine